=== PATIENT | male | born 2000 | race Caucasian/White ===

== ENCOUNTER 2022-09-21 17:39 | Emergency (ER) | payer OTHER ==
[~2022-09-21] VITALS: Ht 172.7 cm; Wt 97.1 kg
[2022-09-21 18:06] VITALS: BP 140/73
[2022-09-21] MEDS ORDERED: ACETAMINOPHEN EXTRA STRENGTH 500 MG TAB ONE (18:10)
[2022-09-21] MEDS ORDERED: ACETAMINOPHEN EXTRA STRENGTH 500 MG TAB PO ONE (18:10)
--- NOTE | 2022-09-21 19:00 | NUR ---
FLU, COVID SWABS DONE.
[2022-09-21] MEDS ORDERED: ALBU0.0912 IH (20:02)
[2022-09-21] MEDS ORDERED: PROM118S5 PO (20:02)
[2022-09-21] MEDS ORDERED: ACET-10509 PO (20:02)
[2022-09-21] MEDS ORDERED: LIDO100S PO (20:02)
[2022-09-21] MEDS ORDERED: ONDA-188 PO (20:02)
[2022-09-21 20:18] VITALS: BP 134/70
--- NOTE | 2022-09-21 20:19 | NUR ---
Patient discharged with v/s stable. Written and verbal after care instructions given and explained. Patient alert, oriented and verbalized understanding of instructions. Ambulatory with steady gait. All questions addressed prior to discharge. ID band removed. Patient advised to follow up with PMD. Rx of ALBUTEROL, LIDOCAINE, ZOFRAN,PROMETHAZINE, TYLENOL given. Patient educated on indication of medication including possible reaction and side effects. Opportunity to ask questions provided and answered.
== END 2022-09-21 20:19 | disposition home or self-care (01) ==
LOC: MED 17:39
DX: J10.1 Influenza due to other identified influenza virus with other respiratory manifestations (principal); Z20.822 Contact with and (suspected) exposure to COVID-19
CPT/HCPCS: 99283